=== PATIENT | female | born 1985 | race Caucasian/White ===

== ENCOUNTER 2017-02-10 12:21 | Emergency (ER) | payer MEDICARE, MEDICAID ==
--- NOTE | 2017-02-10 14:12 | EDM.PDOC ---
ED HPI GENERAL MEDICAL PROBLEM - General Chief Complaint: Lower Extremity Injury/Pain Stated Complaint: LEFT FOOT Time Seen by Provider: 02/10/17 12:36 Source of Information: Reports: Patient, Family History Limitations: Reports: No Limitations - History of Present Illness INITIAL COMMENTS - FREE TEXT/NARRATIVE: 31 y.o.w f came to the ed after she felt coming out of her mom's house. Pt noticed pain at her lateral aspect of her left foot. Pt is not able to apply weight onto her left foot due to pain. No other acute medical issues. BP 125/65 pulse 68 RR 18 Onset: Today Onset Date: 02/10/17 Onset Time: 07:00 Duration: Hour(s): Location: Reports: Lower Extremity, Left Quality: Reports: Ache, Burning, Dull Severity: Mild Improves with: Reports: Rest Worsens with: Reports: Movement Context: Reports: Other (twisted foot) Left Feet Pain Score (Numeric/FACES): 9 - Related Data Allergies Allergy/AdvReac Type Severity Reaction Status Date / Time amoxicillin [Amoxicillin] Allergy Airway Verified 02/10/17 12:35 Tightness cephalexin Allergy Rash Verified 02/10/17 12:35 lorazepam [From Ativan] Allergy Hypertensio Verified 02/10/17 12:35 n Penicillins Allergy Airway Verified 02/10/17 12:35 Tightness prednisone Allergy Change Verified 02/10/17 12:35 Mental Status BEE STINGS Allergy Anaphylactic Uncoded 02/10/17 12:35 Shock SHELL FISH Allergy Anaphylactic Uncoded 02/10/17 12:35 Shock Home Meds: Home Meds Albuterol [Proventil HFA] 2 puff INH Q4H PRN 05/30/13 [History] Montelukast Sodium 10 mg PO BEDTIME 04/17/14 [History] Beclomethasone Dipropionate [Qvar 40 Mcg] 2 puff INH BID 04/26/14 [History] EPINEPHrine [Epipen] 0.3 mg IM ASDIRECTED PRN 04/26/14 [History] Albuterol/Ipratropium [DuoNeb 3.0-0.5 MG/3 ML] 3 ml NEB QID PRN 10/12/15 [ History] Doxylamine Succinate [Unisom] 50 mg PO BEDTIME 03/02/16 [History] Loratadine 10 mg PO BEDTIME 03/02/16 [History] Omeprazole 20 mg PO BEDTIME 03/02/16 [History] Vit #76/Iron,Carb/Fa [Vol-Tab Rx] 1 tab PO BEDTIME 03/02/16 [History] Ziprasidone HCl 20 mg PO BEDTIME 03/02/16 [History] Ziprasidone HCl 20 mg PO DAILY PRN 03/02/16 [History] Ziprasidone HCl 80 mg PO BEDTIME 03/02/16 [History] busPIRone [Buspar] 15 mg PO BEDTIME 03/02/16 [History] busPIRone [Buspar] 7.5 mg PO DAILY 03/03/16 [History] Ibuprofen [IJD: Ibuprofen] 600 mg PO Q6H PRN #0 tablet 03/05/16 [Rx] Past Medical History HEENT History: Reports: Impaired Vision Respiratory History: Reports: Asthma Gastrointestinal History: Reports: Other (See Below) Other Gastrointestinal History: PT HAS NAUSEA & VOMITTING FOR THE PAST 2 WKS. 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 Scoliosis Neurological History: Reports: Migraines Psychiatric History: Reports: Other (See Below) Other Psychiatric History: bipolar, borderline personality, obsessive compulsive. post-traumatic stress syndrome, generalized anxiety, ADHD, adjustment disorder with emotion disturbance and misconduct. Endocrine/Metabolic History: Reports: Obesity/BMI 30+, Other (See Below) Other Endocrine/Metabolic History: Pre-diabetic Dermatologic History: Reports: Eczema - Infectious Disease History Infectious Disease History: Reports: Chicken Pox - Past Surgical History Other Cardiovascular Surgeries/Procedures: Father has hx of heart disease Respiratory Surgical History: Reports: None Musculoskeletal Surgical History: Reports: Other (See Below) Social & Family History - Family History Family Medical History: Noncontributory - Tobacco Use Smoking Status *Q: Never Smoker Years of Tobacco use: 1 Packs/Tins Daily: 1 Used Tobacco, but Quit: Yes Month Tobacco Last Used: JULY Second Hand Smoke Exposure: No - Caffeine Use Caffeine Use: Reports: Coffee Other Caffeine Use: ONCE DAILY - Alcohol Use Days Per Week of Alcohol Use: 1 Number of Drinks Per Day: 2 Total Drinks Per Week: 2 - Recreational Drug Use Recreational Drug Use: No Review of Systems - Review of Systems Review Of Systems: See Below Constitutional: Reports: No Symptoms Eyes: Reports: No Symptoms Ears: Reports: No Symptoms Nose: Reports: No Symptoms Mouth/Throat: Reports: No Symptoms Respiratory: Reports: No Symptoms Cardiovascular: Reports: No Symptoms GI/Abdominal: Reports: No Symptoms Genitourinary: Reports: No Symptoms Musculoskeletal: Reports: Foot Pain Skin: Reports: No Symptoms Neurological: Reports: No Symptoms Psychiatric: Reports: No Symptoms ED EXAM, GENERAL - Physical Exam Exam: See Below Exam Limited By: No Limitations General Appearance: Alert, WD/WN, Mild Distress Eye Exam: Bilateral Eye: Normal Inspection Ears: Normal External Exam Ear Exam: Bilateral Ear: Auricle Normal Nose: Normal Inspection, Normal Mucosa Throat/Mouth: Normal Inspection Head: Atraumatic, Normocephalic Neck: Normal Inspection, Supple, Non-Tender Respiratory/Chest: No Respiratory Distress, Lungs Clear, Normal Breath Sounds Cardiovascular: Normal Peripheral Pulses, Regular Rate, Rhythm Peripheral Pulses: 1+: Femoral (L), Femoral (R) GI/Abdominal: Normal Bowel Sounds (Female) Exam: Deferred Rectal (Female) Exam: Deferred Back Exam: Normal Inspection, Full Range of Motion Extremities: Normal Inspection, Normal Range of Motion Neurological: Alert, Oriented, CN II-XII Intact, Normal Cognition, Abnormal Gait (due to left fore foot pain) Psychiatric: Normal Affect, Normal Mood Skin Exam: Warm, Dry, Intact, Normal Color, No Rash Lymphatic: No Adenopathy Course - Vital Signs Text/Narrative:: 31 y.o.w f came to the ed after she felt coming out of her mom's house. Pt noticed pain at her lateral aspect of her left foot. Pt is not able to apply weight onto her left foot due to pain. No other acute medical issues. BP 125/65 pulse 68 RR 18 PE: Left lat forfoot pain, no swelling no open wound Imaging: Left foot: NAD as per RAD Impression: Left foot sprain Tx: Pt refused pain meds, Walking boot was applied. Reexam: Improved. pt was ambulating with the walkingboot on D/C Plan: D/C with instructions Last Recorded V/S: Last Vital Signs Temp 36.6 C 02/10/17 12:36 Pulse 80 02/10/17 14:10 Resp 18 02/10/17 12:36 BP 110/61 02/10/17 14:10 Pulse Ox 98 02/10/17 12:36 - Orders/Labs/Meds Orders: Active Orders 24 hr Category Date Time Status Cooling Warming Measures [RC] ASDIRECTED Care 02/10/17 12:41 Active Foot Comp Min 3V Lt [CR] Stat Exams 02/10/17 12:40 Taken Ice Bag [Ice Therapy] [OM.PC] Routine Oth 02/10/17 12:41 Ordered Departure - Departure Time of Disposition: 14:08 Disposition: Home, Self-Care 01 Condition: Good Clinical Impression: Sprain of foot, left Qualifiers: Encounter type: initial encounter Qualified Code(s): S93.602A - Unspecified sprain of left foot, initial encounter - Discharge Information Referrals: Breana Perera NP [Primary Care Provider] - Forms: ED Department Discharge Additional Instructions: Please take tylenol/motrin for pain, rest, ice and elevation, please f/u, come back if your symptoms worsen acutely - My Orders Last 24 Hours: My Active Orders 02/10/17 12:40 Foot Comp Min 3V Lt [CR] Stat 02/10/17 12:41 Cooling Warming Measures [RC] ASDIRECTED Ice Bag [Ice Therapy] [OM.PC] Routine - Assessment/Plan Last 24 Hours: My Active Orders 02/10/17 12:40 Foot Comp Min 3V Lt [CR] Stat 02/10/17 12:41 Cooling Warming Measures [RC] ASDIRECTED Ice Bag [Ice Therapy] [OM.PC] Routine
[2017-02-10 14:20] VITALS: BP 110/61
--- NOTE | 2017-02-13 08:27 | CR ---
INDICATION: Tripped over rug, pain lateral foot. LEFT FOOT: Three views of the left foot revealed an appearance of soft tissue swelling overlying the dorsum of the foot at the level of the mid to distal metatarsals. A fracture, dislocation, or other significant bone or joint abnormality was not identified. MTDD
== END 2017-02-10 14:15 | disposition home or self-care (01) ==
LOC: FB.ED 12:21
DX: S93.602A Unspecified sprain of left foot, initial encounter (principal); Z87.891 Personal history of nicotine dependence; J45.909 Unspecified asthma, uncomplicated; E66.9 Obesity, unspecified; Z79.899 Other long term (current) drug therapy; Z88.0 Allergy status to penicillin; Z91.030 Bee allergy status; Z91.013 Allergy to seafood; Z88.8 Allergy status to other drugs, medicaments and biological substances; W18.49XA Other slipping, tripping and stumbling without falling, initial encounter
CPT/HCPCS: 73630-LT; 99283; 99284

== ENCOUNTER 2018-11-01 22:21 | Emergency (ER) | payer MEDICARE, MEDICAID ==
[2018-11-01] MEDS ORDERED: Ondansetron 4 MG/2 ML SDV IM ONE (22:35)
--- NOTE | 2018-11-01 22:45 | EDM.PDOC ---
ED HPI GENERAL MEDICAL PROBLEM - General Chief Complaint: Gastrointestinal Problem Stated Complaint: VOMITING Time Seen by Provider: 11/01/18 22:30 Source of Information: Reports: Patient History Limitations: Reports: No Limitations - History of Present Illness INITIAL COMMENTS - FREE TEXT/NARRATIVE: Rina comes into [facility] with a 6 hour hx of nausea and vomiting of partially digested food and beverages. There is limited epigastric pain, nonradiating, without fever, chills, sweats, food intolerance, or diarrhea. She has had issues with her stomach since 2011, currently on Prilosec daily. She has also had issues with vomiting since 2014, taking Zofran liquid or SL for sxs relief. Her current supply of Zofran is depleted. She has an appt. to see her PCP tomorrow. Abdomen Pain Score (Numeric/FACES): 8 - Related Data Allergies Allergy/AdvReac Type Severity Reaction Status Date / Time amoxicillin [Amoxicillin] Allergy Airway Verified 11/01/18 22:29 Tightness cephalexin Allergy Rash Verified 11/01/18 22:29 lorazepam [From Ativan] Allergy Hypertensio Verified 11/01/18 22:29 n Penicillins Allergy Airway Verified 11/01/18 22:29 Tightness prednisone Allergy Change Verified 11/01/18 22:29 Mental Status BEE STINGS Allergy Anaphylactic Uncoded 02/10/17 12:35 Shock SHELL FISH Allergy Anaphylactic Uncoded 02/10/17 12:35 Shock Home Meds: Home Meds Albuterol [Proventil HFA] 2 puff INH Q4H PRN 05/30/13 [History] Montelukast Sodium 10 mg PO BEDTIME 04/17/14 [History] EPINEPHrine [Epipen] 0.3 mg IM ASDIRECTED PRN 04/26/14 [History] Albuterol/Ipratropium [DuoNeb 3.0-0.5 MG/3 ML] 3 ml NEB Q4H PRN 10/12/15 [ History] Mv-Mins No.50/Iron,Carb/Folic [Vol-Tab Rx] 1 tab PO BEDTIME 03/02/16 [History] Omeprazole 20 mg PO BEDTIME 03/02/16 [History] Ziprasidone HCl 40 mg PO BEDTIME 03/02/16 [History] Ziprasidone HCl 80 mg PO BEDTIME 03/02/16 [History] busPIRone [Buspar] 45 mg PO BEDTIME 03/02/16 [History] Fluticasone Propionate [Flonase Allergy Relief] 2 spray NS BID 03/01/18 [History ] Fluticasone/Vilanterol [Breo Ellipta 200-25 MCG Inhalation Kit] 1 puff DAILY [History] atoMOXetine [Strattera] 60 mg PO BEDTIME 03/01/18 [History] Past Medical History HEENT History: Reports: Impaired Vision Respiratory History: Reports: Asthma Gastrointestinal History: Reports: GERD Other Gastrointestinal History: PT HAS NAUSEA & VOMITTING FOR THE PAST 2 WKS. 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 Scoliosis Neurological History: Reports: Migraines, Seizure Other Neuro History: pseudo seizure Psychiatric History: Reports: ADHD, Anxiety, Bipolar, Depression, Suicide Attempt, Other (See Below) Other Psychiatric History: bipolar, borderline personality, obsessive compulsive. post-traumatic stress syndrome, generalized anxiety, ADHD, adjustment disorder with emotion disturbance and misconduct. Endocrine/Metabolic History: Reports: Obesity/BMI 30+ Other Endocrine/Metabolic History: Pre-diabetic Hematologic History: Reports: Anemia, Iron Deficiency Dermatologic History: Reports: Eczema - Infectious Disease History Infectious Disease History: Reports: Chicken Pox, MRSA - Past Surgical History HEENT Surgical History: Reports: Oral Surgery Other Cardiovascular Surgeries/Procedures: Father has hx of heart disease Respiratory Surgical History: Reports: None Female Surgical History: Reports: Section, LEEP Other Female Surgeries/Procedures: CS x 1 Musculoskeletal Surgical History: Reports: ORIF, Other (See Below) Social & Family History - Family History Family Medical History: Noncontributory - Caffeine Use Caffeine Use: Reports: None Other Caffeine Use: ONCE DAILY ED ROS GENERAL - Review of Systems Review Of Systems: ROS reveals no pertinent complaints other than HPI. ED EXAM, GI/ABD - Physical Exam Exam: See Below Exam Limited By: No Limitations General Appearance: Alert, WD/WN, Anxious, Mild Distress, Obese Eyes: Bilateral: Normal Appearance, EOMI Ears: Normal External Exam Nose: Normal Inspection Throat/Mouth: Normal Inspection, Normal Oropharynx Head: Normocephalic Neck: Normal Inspection Respiratory/Chest: Lungs Clear Cardiovascular: Regular Rate, Rhythm GI/Abdominal Exam: Normal Bowel Sounds, Soft, No Organomegaly, No Distention, No Mass, Tender (mild epigastric tenderness) Back Exam: Normal Inspection Extremities: Normal Inspection Neurological: Alert, Oriented, CN II-XII Intact, Normal Cognition, Normal Gait, No Motor/Sensory Deficits Psychiatric: Normal Affect, Anxious Skin Exam: Warm, Dry, Intact, Normal Color, No Rash Lymphatic: No Adenopathy Course - Vital Signs Text/Narrative:: Following assessment, I administered Zofran 8 mg IM, and observed over the next 1/2 hour, with remission of sxs. Last Recorded V/S: Last Vital Signs Temp 36.6 C 11/01/18 22:30 Pulse 76 11/01/18 23:15 Resp 16 11/01/18 23:15 BP 153/91 H 11/01/18 23:15 Pulse Ox 96 11/01/18 23:15 - Orders/Labs/Meds Meds: Medications Discontinued Medications Generic Name Dose Route Start Last Admin Trade Name Gilbert PRN Reason Stop Dose Admin Ondansetron HCl 8 mg 11/01/18 22:35 11/01/18 22:39 Zofran IM 11/01/18 22:36 8 mg ONETIME ONE Administration Departure - Departure Time of Disposition: 23:15 Disposition: Home, Self-Care 01 Condition: Good Clinical Impression: Vomiting - Discharge Information *PRESCRIPTION DRUG MONITORING PROGRAM REVIEWED*: Not Applicable *COPY OF PRESCRIPTION DRUG MONITORING REPORT IN PATIENT SAMANTHA: Not Applicable Instructions: Nausea and Vomiting, Adult Referrals: Breana Perera NP [Primary Care Provider] - Forms: ED Department Discharge Additional Instructions: Zofran that was given to you will last 6 hours. Take your Prilosec when you get home. Follow up with your primary care provider as scheduled tomorrow. - Problem List & Annotations (1) Vomiting SNOMED Code(s): 879432829 Code(s): R11.10 - VOMITING, UNSPECIFIED Status: Acute Annotation/Comment: : Rina will resume the Prilosec at home this evening. - Problem List Review Problem List Initiated/Reviewed/Updated: Yes - Assessment/Plan Plan: Follow up with PCP tomorrow.
[2018-11-01 23:23] VITALS: BP 153/91; PULSE 76
== END 2018-11-01 23:18 | disposition home or self-care (01) ==
LOC: FB.ED 22:21
DX: R11.2 Nausea with vomiting, unspecified (principal); J45.909 Unspecified asthma, uncomplicated; F90.9 Attention-deficit hyperactivity disorder, unspecified type; F41.9 Anxiety disorder, unspecified; Z88.1 Allergy status to other antibiotic agents; Z88.0 Allergy status to penicillin; Z88.8 Allergy status to other drugs, medicaments and biological substances; Z91.013 Allergy to seafood; Z91.030 Bee allergy status; Z79.899 Other long term (current) drug therapy
CPT/HCPCS: 96372; 99283; J2405

== ENCOUNTER 2018-12-04 07:08 | Day surgery (SDC) | payer MEDICARE, MEDICAID ==
[~2018-12-04 07:08] MED LIST: Albuterol/Ipratropium 3.0-0.5 MG/3 ML Neb Soln NEB ONE; Lactated Ringers 1,000 ML IV SCH; Sodium Chloride 0.9% 10 ML Syringe FLUSH PRN
[2018-12-04] MEDS ORDERED: Propofol 200 MG/20 ML SDV IV ONE (07:09)
[2018-12-04] MEDS ORDERED: Lidocaine 2% 5 ML SDV INJECT ONE (07:09)
[2018-12-04] MEDS ORDERED: Albuterol/Ipratropium 3.0-0.5 MG/3 ML Neb Soln NEB ONE (08:00)
--- NOTE | 2018-12-04 08:51 | PCM.OPNOTE ---
- General Post-Op/Procedure Note Date of Surgery/Procedure: 12/04/18 Operative Procedure(s): egd with bx Findings: gastritis esophagitis Pre Op Diagnosis: gerd. nausea and vomiting Post-Op Diagnosis: gastritis. esophagitis Anesthesia Technique: MAC Primary Surgeon: Jose Hermosillo Anesthesia Provider: Regis Morse Pathology: stomach and esophagus Complications: None Condition: Good Free Text/Narrative:: see dictation
[2018-12-04 09:09] VITALS: PULSE 87
[2018-12-04 09:48] VITALS: BP 115/87
--- NOTE | 2018-12-04 14:30 | OR ---
DATE OF OPERATION: 12/04/2018 SURGEON: Jose Hermosillo MD PROCEDURE PERFORMED: EGD with cold forceps biopsy. PREOPERATIVE DIAGNOSIS: Personal history of gastroesophageal reflux disease, nausea, and vomiting. POSTOPERATIVE DIAGNOSIS: Gastritis and esophagitis. INDICATIONS FOR PROCEDURE: This is a 33-year-old white female with the above- mentioned complaints, has had a longstanding history of gastroesophageal reflux disease. Recently, this has gotten progressively worse. She has been offered and accepted an EGD. DESCRIPTION OF OPERATION: After an excellent IV sedation was administered, the bite block was inserted. The flexible endoscope was passed down the esophagus into the stomach. Stomach was insufflated. Scope passed through the pylorus, second portion of duodenum and slowly withdrawn. The following findings were noted: Duodenum was unremarkable. In the stomach, linear erythema suggestive of gastritis. Biopsies were taken. GE junction measured approximately 40 cm, and there was some marked erythema just proximal to this and biopsies were taken. This involved the distal 3 cm. Remainder of the esophageal exam was unremarkable. The patient tolerated the procedure, was taken to recovery in good condition. /[id number] /MODL
== END 2018-12-04 09:43 | disposition home or self-care (01) ==
LOC: FB.SDS 07:08
PROVIDERS: ATTEND Surgery
DX: K21.0 Gastro-esophageal reflux disease with esophagitis (principal); R11.2 Nausea with vomiting, unspecified; I10 Essential (primary) hypertension; G43.909 Migraine, unspecified, not intractable, without status migrainosus; J45.909 Unspecified asthma, uncomplicated; F90.9 Attention-deficit hyperactivity disorder, unspecified type; F31.31 Bipolar disorder, current episode depressed, mild; Z79.899 Other long term (current) drug therapy; Z79.3 Long term (current) use of hormonal contraceptives; Z79.51 Long term (current) use of inhaled steroids; Z88.0 Allergy status to penicillin; Z88.1 Allergy status to other antibiotic agents; Z88.8 Allergy status to other drugs, medicaments and biological substances; Z91.030 Bee allergy status; Z91.013 Allergy to seafood; Z87.891 Personal history of nicotine dependence
CPT/HCPCS: 00731; 43239; 81025; 88305; 88313; 88342; J2001; J2704; J7120; J7620-GY